=== PATIENT | male | born 1990 | race American Indian/Alaskan Native ===

== ENCOUNTER 2020-06-22 04:13 | Emergency (ER) | payer SELFPAY ==
[2020-06-22] MEDS ORDERED: ONDANSETRON 4 MG/2 ML INJ IV ONE (04:29)
[2020-06-22] MEDS ORDERED: MORPHINE 4 MG/1 ML INJ IV ONE (04:29)
[2020-06-22] MEDS ORDERED: FAMOTIDINE 20 MG/2 ML INJ IV ONE (04:30)
[2020-06-22] MEDS ORDERED: SODIUM CHLORIDE 0.9% 1000 ML 1,000 ML IV ONE (04:30)
[2020-06-22 05:33] LABS: Bacteria,Urine 1+ /HPF (Negative); Bilirubin,Urine NEG (Negative); Blood,Urine SM (Negative); Color,Urine Yellow (Yellow); Mucus,Urine 3+ /HPF
[2020-06-22 06:11] LABS: Basophils % (Auto) 0.6 % (0.0-1.8); Eosinophils % (Auto) 0.6 % (0.0-4.3); Hematocrit 43.7 % (35.5-45.6); Hemoglobin 14.7 gm/dl (11.8-15.2); Lymphocytes # (Auto) 1.9 K/mm3 (1.2-5.4); Lymphocytes % (Auto) 34.8 % (13.4-35.0); Mean Corpuscular HGB Conc 34 % (32-34); Mean Corpuscular Volume 83 fl (84-94); Monocytes # (Auto) 0.6 K/mm3 (0.0-0.8); Monocytes % (Auto) 10.1 % (0.0-7.3); Platelet Count 272 K/mm3 (140-440); Red Blood Count 5.28 M/mm3 (3.65-5.03); Red Cell Distribution Width 14.1 % (13.2-15.2)
[2020-06-22 06:29] LABS: Alanine Aminotransferase 10 units/L (7-56); Albumin 4.4 g/dL (3.9-5); BUN/Creatinine Ratio 7; Blood Urea Nitrogen 6 mg/dL (9-20); Calcium 9.5 mg/dL (8.4-10.2); Hemolysis Index 2
[2020-06-22] MEDS ORDERED: POTASSIUM CHLORIDE ER 20 MEQ TAB PO ONE (07:02)
--- NOTE | 2020-06-22 07:19 | Emergency Department Report ---
HPI - General Chief Complaint: Abdominal Pain Time Seen by Provider: 06/22/20 06:25 - HPI HPI: Room 39 The patient is a 30-year-old male present with a chief complaint of nausea vomiting. The patient states for the past 3 days he has had sharp intermittent periumbilical abdominal pain associated nausea and vomiting. Patient denies diarrhea. Patient denies history of fever. Patient denies dysuria, hematuria or penile discharge. Patient denies contact with any known Covid positive patients. Patient was administered medication prior to my evaluation now states he feels okay. ED Past Medical Hx - Past Medical History Previous Medical History?: No - Surgical History Past Surgical History?: No - Family History Family history: no significant - Social History Substance Use Type: Marijuana - Medications Home Medications: Home Medications Medication Instructions Recorded Confirmed Last Taken Type Ondansetron [Zofran ODT TAB] 8 mg PO Q8HR #20 tab.rapdis 06/22/20 Unknown Rx Sulfamethoxazole/Trimethoprim 1 each PO BID #14 tablet 06/22/20 Unknown Rx [Bactrim DS TAB] ED Review of Systems ROS: Stated complaint: ABDOMINAL PAIN Other details as noted in HPI Constitutional: denies: fever Eyes: denies: eye pain ENT: denies: throat pain Respiratory: cough Cardiovascular: denies: chest pain Endocrine: no symptoms reported Gastrointestinal: abdominal pain, nausea, vomiting. denies: diarrhea Genitourinary: denies: dysuria, hematuria, discharge Musculoskeletal: denies: back pain Neurological: denies: headache Physical Exam - Physical Exam Vital Signs: Vital Signs 06/22/20 04:21 Temperature 98.4 F Pulse Rate 54 L Respiratory 18 Rate Blood Pressure 117/84 O2 Sat by Pulse 98 Oximetry Physical Exam: GENERAL: The patient is well-developed well-nourished male lying on stretcher not appearing to be in acute distress. [] HEENT: Normocephalic. Atraumatic. Extraocular motions are intact. Patient has moist mucous membranes. NECK: Supple. Trachea midline CHEST/LUNGS: Clear to auscultation. There is no respiratory distress noted. HEART/CARDIOVASCULAR: Regular. There is no tachycardia. There is no gallop rub or murmur. ABDOMEN: Abdomen is soft, with mild discomfort to palpation in the left upper quadrant. There is no rebound or guarding. Patient has normal bowel sounds. There is no abdominal distention. SKIN: There is no rash. There is no edema. There is no diaphoresis. NEURO: The patient is awake, alert, and oriented. The patient is cooperative. The patient has normal speech MUSCULOSKELETAL: There is no evidence of acute injury. ED Course Vital Signs 06/22/20 04:21 Temperature 98.4 F Pulse Rate 54 L Respiratory 18 Rate Blood Pressure 117/84 O2 Sat by Pulse 98 Oximetry ED Medical Decision Making - Lab Data Result diagrams: 06/22/20 05:46 06/22/20 05:46 - Radiology Data Radiology results: report reviewed (CT abdomen pelvis), image reviewed (CT abdomen pelvis) Findings [facility] [address] [place] [address] Cat Scan Report Signed Patient: SERGIO BOLAND JR MR#: [id number] : 1990 Acct:[id number] Age/Sex: 30 / M ADM Date: 06/22/20 Loc: ED Attending Dr: Ordering Physician: KEYON LION Date of Service: 06/22/20 Procedure(s): CT abdomen pelvis w con Accession Number(s): [id number] cc: KEYON LION CT abdomen pelvis w con INDICATION: MAIN. COMPARISON: None TECHNIQUE: Abdominal and pelvic CT exam performed. All CT scans at this location are performed using CT dose reduction for ALARA by means of automated exposure control. FINDINGS: CT ABDOMEN and PELVIS: Lung Bases: No significant abnormality. Liver: No significant abnormality. Biliary: No significant abnormality. Spleen: No significant abnormality. Pancreas: No significant abnormality. Adrenals: No significant abnormality. Kidneys: No significant abnormality. Lymphatics: No lymphadenopathy. Vasculature: No significant abnormality. Bowel: No significant abnormality. Normal appendix. Pelvis: No significant abnormality. Osseous S tructures: No aggressive osseous lesion. Additional Findings: None IMPRESSION: 1. No significant abnormality of the abdomen or pelvis. Signer Name: Jorge L Sánchez MD Signed: 06/22/2020 7:58 AM Workstation Name: [id number] Transcribed By: Dictated By: Jorge L Sánchez MD Electronically Authenticated By: Jorge L Sánchez MD Signed Date/Time: 06/22/20 0758 DD/ 075 TD/TT: - Differential Diagnosis Gastroenteritis, gastritis, partial SBO Critical care attestation.: If time is entered above; I have spent that time in minutes in the direct care of this critically ill patient, excluding procedure time. ED Disposition Clinical Impression: Nausea & vomiting, UTI (urinary tract infection) Disposition: TO HOME OR SELFCARE Is pt being admited?: No Does the pt Need Aspirin: No Condition: Stable Additional Instructions: Return to the emergency department should you develop worsening symptoms, inability to tolerate food or liquids, high fever or any other concerns Prescriptions: Sulfamethoxazole/Trimethoprim [Bactrim DS TAB] 1 each PO BID #14 tablet Ondansetron [Zofran ODT TAB] 8 mg PO Q8HR #20 tab.rapdis Referrals: PRIMARY CARE, [Primary Care Provider] - 3-5 Days [facility] [Provider Group] - 3-5 Days Time of Disposition: 08:19
[2020-06-22 07:55] VITALS: BP 132/80
--- NOTE | 2020-06-22 08:03 | Cat Scan Report ---
CT abdomen pelvis w con INDICATION: MAIN. COMPARISON: None TECHNIQUE: Abdominal and pelvic CT exam performed. All CT scans at this location are performed using CT dose reduction for ALARA by means of automated exposure control. FINDINGS: CT ABDOMEN and PELVIS: Lung Bases: No significant abnormality. Liver: No significant abnormality. Biliary: No significant abnormality. Spleen: No significant abnormality. Pancreas: No significant abnormality. Adrenals: No significant abnormality. Kidneys: No significant abnormality. Lymphatics: No lymphadenopathy. Vasculature: No significant abnormality. Bowel: No significant abnormality. Normal appendix. Pelvis: No significant abnormality. Osseous Structures: No aggressive osseous lesion. Additional Findings: None IMPRESSION: 1. No significant abnormality of the abdomen or pelvis. Signer Name: Jorge L Sánchez MD Signed: 06/22/2020 7:58 AM Workstation Name: [id number]
[2020-06-22] MEDS ORDERED: LIDOCAINE-MPF (1%) 10 MG/1 ML VIAL 5 ML INFILTRATI ONE (08:16)
[2020-06-22] MEDS ORDERED: AZITHROMYCIN 1 GM ORAL PWDR PACKET PO ONE (08:16)
== END 2020-06-22 09:01 | disposition home or self-care (01) ==
LOC: ED 04:13
DX: N39.0 Urinary tract infection, site not specified (principal); R11.2 Nausea with vomiting, unspecified; Z79.899 Other long term (current) drug therapy
CPT/HCPCS: 36415; 74177; 80053; 81001; 83690; 85025; 87086; 96361; 96372; 96374; 96375; 99284; J0696; J2270; J2405; J7030; Q9967

== ENCOUNTER 2020-06-25 13:07 | Emergency (ER) | payer SELFPAY ==
[2020-06-25 13:34] VITALS: BP 120/79
--- NOTE | 2020-06-25 13:40 | Event Note ---
ED Screening Note Date of service: 06/25/20 Time: 13:39 ED Screening Note: Patient complains of continued abdominal pain since being seen 06/23/2020 Denies nausea/vomiting/diarrhea No history of abdominal surgeries UA during last visit showed 22 WBCs, however urine culture is negative This initial assessment/diagnostic orders/clinical plan/treatment(s) is/are subject to change based on patients health status, clinical progression and re- assessment by fellow clinical providers in the ED. Further treatment and workup at subsequent clinical providers discretion. Patient/guardian urged not to elope from the ED as their condition may be serious if not clinically assessed and managed. Initial orders include: Lab
[2020-06-25 14:57] LABS: Basophils # (Auto) 0.1 K/mm3 (0.0-0.1); Basophils % (Auto) 1.2 % (0.0-1.8); Eosinophils % (Auto) 0.6 % (0.0-4.3); Hematocrit 47.6 % (35.5-45.6); Hemoglobin 16.2 gm/dl (11.8-15.2); Lymphocytes # (Auto) 2.3 K/mm3 (1.2-5.4); Lymphocytes % (Auto) 42.3 % (13.4-35.0); Mean Corpuscular HGB Conc 34 % (32-34); Mean Corpuscular Volume 82 fl (84-94); Monocytes # (Auto) 0.6 K/mm3 (0.0-0.8); Monocytes % (Auto) 11.6 % (0.0-7.3); Platelet Count 318 K/mm3 (140-440); Red Blood Count 5.78 M/mm3 (3.65-5.03); Red Cell Distribution Width 13.8 % (13.2-15.2)
[2020-06-25 15:15] LABS: Alanine Aminotransferase 9 units/L (7-56); Albumin 4.8 g/dL (3.9-5); BUN/Creatinine Ratio 8; Blood Urea Nitrogen 8 mg/dL (9-20); Calcium 10.1 mg/dL (8.4-10.2); Hemolysis Index 3
[2020-06-25] MEDS ORDERED: POTASSIUM CHLORIDE ER 20 MEQ TAB PO ONE (18:33)
[2020-06-25] MEDS ORDERED: KETOROLAC 30 MG/1 ML INJ IM STA (18:33)
[2020-06-25] MEDS ORDERED: ONDANSETRON 4 MG ODT TAB PO STA (18:34)
--- NOTE | 2020-06-25 18:34 | Emergency Department Report ---
ED General Adult HPI - General Chief complaint: Abdominal Pain Stated complaint: ABDOMINAL PAIN/NAUSEA PUI?: No Time Seen by Provider: 06/25/20 13:35 Source: patient, RN notes reviewed, old records reviewed Mode of arrival: Ambulatory Limitations: No Limitations - History of Present Illness Initial comments: The patient was evaluated in the emergency department for symptoms described in the history of present illness. He/she was evaluated in the context of the global COVID-19 pandemic, which necessitated consideration that the patient might be at risk for infection with the virus that causes COVID-19. Institutional protocols and algorithms that pertain to the evaluation of patients at risk for COVID-19 are in a state of rapid change based on information released by regulatory bodies including the CDC and federal and state organizations. These policies and algorithms were followed during the patient's care in the emergency department. Please note that these policies, procedures and recommendations changed on a rapid basis. During the entire history and physical examination, I am chaperoned by nurse Donny Hernandez The patient is a 30-year-old gentleman. He is not known to myself previously. He does not have a primary care doctor. He consumes recreational marijuana on a regular basis, but otherwise, denies chronic medical conditions, and abdominal surgeries. The patient was seen in this department/hospital a few days ago for abdominal pain. He had a CT scan of his abdomen pelvis which was negative for acute findings, and an asymptomatic pyuria demonstrated on urinalysis, and was treated empirically for presumed STI, and discharged with Bactrim. The patient presents to the ER today with a complaint of recurrent intermittent suprapubic abdominal pain and cramping. His pain does not radiate anywhere. He states he is pain-free at this time. His pain gets better if he takes a hot bath or hot shower. He currently denies headache, neck pain, chest pain, shortness of breath, urinary symptoms, testicular pain, fever, loss of taste and loss of smell. He has not really taken any [id number]-ejydezy pain medications. He is sexually active with only female partners, typically without condoms, and denies penetrative anal intercourse. -: Gradual, days(s) Location: abdomen Radiation: non-radiation Quality: aching Consistency: intermittent Improves with: none Worsens with: none - Related Data Previous Rx's Medication Instructions Recorded Last Taken Type Ondansetron [Zofran ODT TAB] 8 mg PO Q8HR #20 tab.rapdis 06/22/20 Unknown Rx Acetaminophen [Non-Aspirin Extra 500 mg PO Q6HR PRN #30 tablet 06/25/20 Unknown Rx Strength] Ibuprofen [Motrin] 600 mg PO Q8H PRN #30 tablet 06/25/20 Unknown Rx Potassium Chloride [K-Dur] 20 meq PO BID #15 tab 06/25/20 Unknown Rx Allergies Allergy/AdvReac Type Severity Reaction Status Date / Time No Known Allergies Allergy Unverified 06/22/20 04:23 ED Review of Systems ROS: Stated complaint: ABDOMINAL PAIN/NAUSEA Other details as noted in HPI Constitutional: denies: fever Eyes: denies: eye discharge ENT: denies: epistaxis Respiratory: denies: cough Cardiovascular: denies: chest pain Gastrointestinal: abdominal pain, nausea, vomiting. denies: hematemesis, melena, hematochezia Genitourinary: denies: urgency, dysuria, frequency, testicular pain Musculoskeletal: denies: back pain Neurological: denies: weakness Hematological/Lymphatic: denies: easy bleeding ED Past Medical Hx - Past Medical History Previous Medical History?: No - Social History Smoking Status: Never Smoker Substance Use Type: Marijuana - Medications Home Medications: Home Medications Medication Instructions Recorded Confirmed Last Taken Type Ondansetron [Zofran ODT TAB] 8 mg PO Q8HR #20 tab.rapdis 06/22/20 Unknown Rx Acetaminophen [Non-Aspirin Extra 500 mg PO Q6HR PRN #30 tablet 06/25/20 Unknown Rx Strength] Ibuprofen [Motrin] 600 mg PO Q8H PRN #30 tablet 06/25/20 Unknown Rx Potassium Chloride [K-Dur] 20 meq PO BID #15 tab 06/25/20 Unknown Rx ED Physical Exam - General Limitations: No Limitations General appearance: alert, in no apparent distress - Head Head exam: Present: atraumatic, normocephalic - Eye Eye exam: Present: normal appearance, EOMI. Absent: nystagmus - ENT ENT exam: Present: normal exam, normal orophraynx, mucous membranes moist, normal external ear exam - Neck Neck exam: Present: normal inspection, full ROM. Absent: tenderness, meni ngismus - Respiratory Respiratory exam: Present: normal lung sounds bilaterally. Absent: respiratory distress, wheezes, rales, rhonchi, stridor, decreased breath sounds - Cardiovascular Cardiovascular Exam: Present: regular rate, normal rhythm, normal heart sounds. Absent: bradycardia, tachycardia, irregular rhythm, systolic murmur, diastolic murmur, rubs, gallop - GI/Abdominal GI/Abdominal exam: Present: soft, normal bowel sounds. Absent: distended, tenderness, guarding, rebound, rigid, pulsatile mass - Rectal Rectal exam: Present: deferred - exam: Present: normal inspection, other (There is normal testicular lie. There is normal cremasteric reflex. There is no testicular tenderness. There is no testicular swelling). Absent: testicular tenderness External exam: Present: normal external exam, other (Chaperoned by nurse Donny Hernandez) - Extremities Exam Extremities exam: Present: normal inspection, full ROM, other (2+ pulses noted in the bilateral upper and lower extremities. There is no palpable cord. negative Homans sign. Muscular compartments are soft. The pelvis is stable.). Absent: pedal edema, calf tenderness - Back Exam Back exam: Present: normal inspection, full ROM. Absent: tenderness, CVA tenderness (R), CVA tenderness (L), paraspinal tenderness, vertebral tenderness - Neurological Exam Neurological exam: Present: alert, other (No facial droop. Tongue midline. Extraocular movements intact bilaterally. Facial sensation intact to light touch in V1, V2, V3 distribution bilaterally. 5 and a 5 strength in 4 extremities. Sensation intact to light touch in 4 extremities.) - Psychiatric Psychiatric exam: Present: anxious - Skin Skin exam: Present: warm, dry, intact, normal color. Absent: rash ED Course Vital Signs 06/25/20 13:29 Temperature 97.8 F Pulse Rate 80 Respiratory 16 Rate Blood Pressure 120/79 O2 Sat by Pulse 100 Oximetry - Reevaluation(s) Reevaluation #1: 06/25/20 19:16 Differential diagnosis, including but not limited to: Cannabinoid hyperemesis syndrome, functional abdominal pain, IBS, medication side effect Assessment and plan: 30-year-old gentleman with history of intermittent abdominal pain, CT scan of the abdomen pelvis a few days ago was negative for acute findings, with no lower abdominal pain, tenderness, rebound, guarding, or concerning physical exam findings, benign and unremarkable genital exam, with normal testicular lie, normal cremasteric reflex, no testicular tenderness, asymptomatic urinalysis from a few days ago demonstrated pyuria, treated empirically for STI, and placed on Bactrim. I suspect cannabinoid hyperemesis syndrome and a component of functional abdominal pain. Do not suspect active urinary tract infection at this time. Suspect that there may be a component of medication side effect, from Bactrim. There is no active vomiting at this time. There is no abdominal tenderness at this time. Patient will be medicated appropriately. Extensive discussion had with patient regarding need to stop cannabis consumption. Do not see indication for advanced imaging at this time. We discussed diet, lifestyle modifications. Patient may follow-up with an outpatient primary care doctor, and/or artificial inseminator for his intermittent abdominal pain, hypokalemia, and pyuria. The patient had a urine culture sent a few days ago, which to date has not grown any organisms. 06/25/20 19:17 06/25/20 19:19 06/25/20 20:03 Belly soft on repeat exam. Tolerated medications without difficulty. No discomfort after a prolonged stay in the emergency department. ED Medical Decision Making - Lab Data Result diagrams: 06/25/20 13:50 06/25/20 13:50 Vital Signs 06/25/20 13:29 Temperature 97.8 F Pulse Rate 80 Respiratory 16 Rate Blood Pressure 120/79 O2 Sat by Pulse 100 Oximetry Lab Results 06/25/20 06/25/20 Range/Units 13:50 13:50 WBC 5.3 (4.5-11.0) K/mm3 RBC 5.78 H (3.65-5.03) M/mm3 Hgb 16.2 H (11.8-15.2) gm/dl Hct 47.6 H (35.5-45.6) % MCV 82 L (84-94) fl MCH 28 (28-32) pg MCHC 34 (32-34) % RDW 13.8 (13.2-15.2) % Plt Count 318 (140-440) K/mm3 Lymph % (Auto) 42.3 H (13.4-35.0) % [place] % (Auto) 11.6 H (0.0-7.3) % Eos % (Auto) 0.6 (0.0-4.3) % Baso % (Auto) 1.2 (0.0-1.8) % Lymph # (Auto) 2.3 (1.2-5.4) K/mm3 [place] # (Auto) 0.6 (0.0-0.8) K/mm3 Eos # (Auto) 0.0 (0.0-0.4) K/mm3 Baso # (Auto) 0.1 (0.0-0.1) K/mm3 Seg Neutrophils % 44.3 (40.0-70.0) % Seg Neutrophils # 2.4 (1.8-7.7) K/mm3 Sodium 134 L (137-145) mmol/L Potassium 3.3 L (3.6-5.0) mmol/L Chloride 96.3 L (98-107) mmol/L Carbon Dioxide 25 (22-30) mmol/L Anion Gap 16 mmol/L BUN 8 L (9-20) mg/dL Creatinine 1.0 (0.8-1.3) mg/dL Estimated GFR > 60 ml/min BUN/Creatinine Ratio 8 % Glucose 97 (75-100) mg/dL Calcium 10.1 (8.4-10.2) mg/dL Total Bilirubin 0.80 (0.1-1.2) mg/dL AST 12 (5-40) units/L ALT 9 (7-56) units/L Alkaline Phosphatase 50 (35-129) units/L Total Protein 8.3 H (6.3-8.2) g/dL Albumin 4.8 (3.9-5) g/dL Albumin/Globulin Ratio 1.4 % Lipase 13 (13-60) units/L - Radiology Data Radiology results: report reviewed, image reviewed Critical care attestation.: If time is entered above; I have spent that time in minutes in the direct care of this critically ill patient, excluding procedure time. ED Disposition Clinical Impression: History of abdominal pain, Pyuria, History of marijuana use, Hypokalemia Disposition: DC-01 TO HOME OR SELFCARE Is pt being admited?: No Does the pt Need Aspirin: No Condition: Stable Additional Instructions: Recommend that the patient discontinue cannabis/marijuana consumption, also recommend that the patient avoid consumption of alcohol, tobacco, and smoke products. Patient may take hot bath and/or hot shower as needed for pain, patient may also take the prescribed pain medications as needed and directed. Patient may also purchase hot sauce [id number], such as Tabasco (this brand is not recommended over other brands of hot sauce, any hot sauce will suffice) and apply liberally to the anterior abdominal wall, when experiencing abdominal pain, nausea and vomiting. Suspect that patient has cannabinoid hyperemesis syndrome, which typically takes 3 to 6 weeks to resolve. Treatment is to discontinue cannabis/marijuana consum ption. Urine cultures were sent a few days ago, preliminary results are negative, however, we recommend that the patient follow-up with her primary care doctor within the next week. We also recommend that the patient have a primary care doctor contact the medical record department to obtain formal culture results. Patient may also discontinue Bactrim medication, it does not appear to be necessary at this time Patient was treated empirically for sexually transmitted infections on a recent ER visit. Take the nausea medication that was prescribed last time for you and pain medication as directed. I recommend outpatient testing for sexually transmitted diseases, including hepatitis, syphilis and HIV. I also recommend that you abstain from sexual activity until you have completed her antibiotic therapy, a physician states that it is safe for you to resume sexual activity, and any part ners that you have been sexually active with have been tested/treated/evaluated for sexual transmitted diseases. I recommend that you return to the ER right away with worsening pain, migration of pain, intractable nausea/vomiting, inability tolerate liquid feeds. Prescriptions: Potassium Chloride [K-Dur] 20 meq PO BID #15 tab Ibuprofen [Motrin] 600 mg PO Q8H PRN #30 tablet PRN Reason: Pain Acetaminophen [Non-Aspirin Extra Strength] 500 mg PO Q6HR PRN #30 tablet PRN Reason: Pain , Severe (7-10) Referrals: FELIPA PHILLIPS MD [Staff Physician] - 3-[address] [facility] [Provider Group] - 3-5 Days Forms: Work/School Release Form(ED)
== END 2020-06-25 20:15 | disposition home or self-care (01) ==
LOC: ED 13:07
DX: E87.6 Hypokalemia (principal); R82.81 Pyuria; F12.90 Cannabis use, unspecified, uncomplicated; Z87.898 Personal history of other specified conditions; Z79.899 Other long term (current) drug therapy
CPT/HCPCS: 36415; 80053; 83690; 85025; 96372; 99283; J1885; Q0162